=== PATIENT | male | born 1980 | race African-American/Black ===

== ENCOUNTER 2016-10-23 18:32 | Emergency (ER) | payer OTHER | END 2016-10-23 20:15 | disposition home or self-care (01) | LOC: CFTX 18:32 → CED 18:32 → CFTX 19:54 | DX: S61.412A Laceration without foreign body of left hand, initial encounter (principal); Z23 Encounter for immunization; F17.200 Nicotine dependence, unspecified, uncomplicated; W45.8XXA Other foreign body or object entering through skin, initial encounter; Y92.009 Unspecified place in unspecified non-institutional (private) residence as the place of occurrence of the external cause | CPT/HCPCS: 12001; 90471; 90715; 99283 ==

== ENCOUNTER 2016-10-30 15:49 | Emergency (ER) | payer OTHER | END 2016-10-30 17:30 | disposition home or self-care (01) | LOC: CED 15:49 | DX: S61.412D Laceration without foreign body of left hand, subsequent encounter (principal); F17.200 Nicotine dependence, unspecified, uncomplicated; X58.XXXD Exposure to other specified factors, subsequent encounter | CPT/HCPCS: 99281 ==